=== PATIENT | female | born 1960 | race African-American/Black ===

== ENCOUNTER 2020-08-14 17:11 | Observation (INO) | payer BC ==
[2020-08-14 17:54] LABS: #Eosinphils 0.3 10x3/uL (0.0-0.5); #Monocytes 0.5 10x3/uL (0.0-1.1); %Basophils 0.5 % (0.0-2.0); %Eosinophils 3.8 % (0.0-6.0); %Lymphocytes 41.6 % (18.0-47.0); %Monocytes 5.9 % (0.0-10.0); Hemoglobin 12.9 g/dL (12.0-15.5); Mean Corpuscular HGB CONC 32.3 g/dL (32.0-36.0); Mean Corpuscular Hemoglobin 27.7 pg (27.0-33.0); Mean Corpuscular Volume 85.6 fl (81.6-98.3); Mean Platelet Volume 9.5 fl (7.4-10.4); Platelet Count 297 10x3/uL (150-450); RBC Distribution Width 13.3 % (11.5-14.5); Red Blood Cell (RBC) Count 4.66 10x6/uL (3.90-5.03); White Blood Cell (WBC) Count 8.4 10x3/uL (3.5-10.5)
[2020-08-14 18:08] LABS: ALT (SGPT) 36 U/L (8-55); AST (SGOT) 31 U/L (5-34); Albumin 4.5 g/dL (3.5-5.0); Alkaline Phosphatase 89 U/L (40-110); Anion Gap 14 mmol/L (10-20); BUN (Urea Nitrogen) 16 mg/dL (9.8-20.1); Bilirubin, Total 0.4 mg/dL (0.2-1.2); CK (CPK) 191 U/L (29-168); Calc. Creatinine Clearance 0 mL/min (70-130); Calcium 9.7 mg/dL (7.8-10.44); Carbon Dioxide 27 mmol/L (22-29); Chloride 104 mmol/L (98-107); Glucose 96 mg/dL (70-105); Potassium 3.8 mmol/L (3.5-5.1); Protein, Total 7.5 g/dL (6.0-8.3); Sodium 141 mmol/L (136-145)
[2020-08-14] MEDS ORDERED: Diltiazem 125 MG/25 ML ONE (19:49)
[2020-08-14] MEDS ORDERED: Diltiazem 125 MG in Sodium Chloride 0.9% 100 ML IVPB SCH ×2 (21:30→21:45)
[2020-08-14] MEDS ORDERED: Apixaban 5 MG TAB PO SCH (21:30)
[2020-08-14] MEDS ORDERED: Pravastatin Sodium 20 MG TAB PO SCH (21:45)
[2020-08-14 22:58] VITALS: BMI 37.8
[2020-08-14 23:37] LABS: Troponin I Less than 0.010 ng/mL (< 0.028)
[2020-08-15 06:05] LABS: #Eosinphils 0.3 10x3/uL (0.0-0.5); #Monocytes 0.5 10x3/uL (0.0-1.1); #Neutrophils 3.1 10x3/uL (1.5-8.4); %Basophils 0.6 % (0.0-2.0); %Eosinophils 4.4 % (0.0-6.0); %Lymphocytes 42.6 % (18.0-47.0); %Monocytes 6.9 % (0.0-10.0); %Neutrophils 45.2 % (40.0-75.0); Hemoglobin 11.8 g/dL (12.0-15.5); Mean Corpuscular HGB CONC 31.9 g/dL (32.0-36.0); Mean Corpuscular Hemoglobin 27.7 pg (27.0-33.0); Mean Corpuscular Volume 86.9 fl (81.6-98.3); Mean Platelet Volume 9.9 fl (7.4-10.4); Platelet Count 254 10x3/uL (150-450); RBC Distribution Width 13.4 % (11.5-14.5); Red Blood Cell (RBC) Count 4.26 10x6/uL (3.90-5.03); White Blood Cell (WBC) Count 6.8 10x3/uL (3.5-10.5)
[2020-08-15 06:13] LABS: Anion Gap 11 mmol/L (10-20); BUN (Urea Nitrogen) 17 mg/dL (9.8-20.1); Calc. Creatinine Clearance 116 mL/min (70-130); Calcium 9.4 mg/dL (7.8-10.44); Carbon Dioxide 29 mmol/L (22-29); Cardiac Risk 3.6 (Less than 4.5); Chloride 107 mmol/L (98-107); Cholesterol 178 mg/dl (< 200 Desired); Glucose 98 mg/dL (70-105); HDL Cholesterol 49 mg/dL (>60 Neg Risk); LDL Cholesterol, Calculated 101 mg/dL; Potassium 3.9 mmol/L (3.5-5.1); Sodium 143 mmol/L (136-145); Triglycerides 139 mg/dL (Less than 150)
[2020-08-15] MEDS ORDERED: Losartan Potassium 50 MG TAB PO SCH (09:00)
[2020-08-15] MEDS ORDERED: Venlafaxine HCl XR 75 MG CAP PO SCH (09:00)
[2020-08-15] MEDS ORDERED: Apixaban 5 MG TAB PO SCH ×2 (09:00→16:47)
[2020-08-15] MEDS ORDERED: MAGNESIUM GLYCINATE 100 MG PO SCH (09:00)
[2020-08-15] MEDS ORDERED: metFORMIN XR 500 MG TAB PO SCH (09:00)
[2020-08-15] MEDS ORDERED: Allopurinol 300 MG TAB PO SCH (09:00)
[2020-08-15 11:34] LABS: Hemoglobin A1c 5.6 % (4.0-6.0)
[2020-08-15 15:06] LABS: SARS-CoV-2 PCR by NAA Not Detected (NotDetected)
[2020-08-15] MEDS ORDERED: Atenolol 25 MG TAB PO SCH (16:47)
[2020-08-15 17:34] VITALS: BP 121/72; TEMP 97.4
[2020-08-15] MEDS ORDERED: Pravastatin Sodium 20 MG TAB PO SCH (21:00)
== END 2020-08-15 17:50 | disposition home or self-care (01) ==
LOC: CSHERS 17:11 → CSHTELE 22:44
PROVIDERS: ADMIT Family Medicine; ATTEND Family Medicine
DX: I48.0 Paroxysmal atrial fibrillation (principal); F41.9 Anxiety disorder, unspecified; K21.9 Gastro-esophageal reflux disease without esophagitis; E11.9 Type 2 diabetes mellitus without complications; E78.5 Hyperlipidemia, unspecified; I10 Essential (primary) hypertension; M10.9 Gout, unspecified; Z86.16 Personal history of COVID-19; Z20.822 Contact with and (suspected) exposure to COVID-19; Z82.49 Family history of ischemic heart disease and other diseases of the circulatory system; Z79.899 Other long term (current) drug therapy; Z79.82 Long term (current) use of aspirin; Z79.84 Long term (current) use of oral hypoglycemic drugs; Z88.1 Allergy status to other antibiotic agents
CPT/HCPCS: 36415; 71045; 80048; 80053; 80061; 82550; 83036; 83735; 84443; 84484; 85025; 87635; 93005; 93010; 93306; 96365; 96376; G0378; U0003; U0005